=== PATIENT | female | born 1980 | race Caucasian/White ===

== ENCOUNTER 2018-11-10 21:23 | Emergency (ER) | payer OTHER, BC ==
[~2018-11-10] VITALS: Ht 170.1 cm; Wt 83.9 kg
[2018-11-10] MEDS ORDERED: ROBAXIN500 M1 PO (23:26)
[2018-11-10] MEDS ORDERED: ANAPROX DS550 MG PO (23:26)
== END 2018-11-10 23:36 | disposition home or self-care (01) ==
LOC: ED 21:23
DX: R07.89 Other chest pain (principal); M54.5 Low back pain; V43.52XA Car driver injured in collision with other type car in traffic accident, initial encounter; Y93.I9 Activity, other involving external motion; Y92.488 Other paved roadways as the place of occurrence of the external cause; Y99.8 Other external cause status

== ENCOUNTER → 2025-03-11 | Outpatient (CLI) | payer BC ==
[~2025-03-11] MED LIST: ANAPROX DS550 MG PO; ROBAXIN500 M1 PO
== END | disposition home or self-care (01) ==
LOC: LAB 07:14
PROVIDERS: ATTEND Internal Medicine Endocrinology, Diabetes & Metabolism
DX: R63.5 Abnormal weight gain (principal)

== ENCOUNTER → 2025-03-12 | Outpatient (CLI) | payer BC | END | disposition home or self-care (01) | LOC: LAB 07:19 | PROVIDERS: ATTEND Internal Medicine Endocrinology, Diabetes & Metabolism | DX: E06.3 Autoimmune thyroiditis (principal); R63.5 Abnormal weight gain ==